=== PATIENT | female | born 1975 | race African-American/Black ===

== ENCOUNTER 2019-05-26 09:40 | Emergency (ER) | payer MEDICARE ==
[~2019-05-26] VITALS: Ht 144.8 cm; Wt 77.3 kg
[~2019-05-26 09:40] MED LIST: AMITRIPTYLIN75 MG OR; COLACE100 MG PO; DEMEROL50 MG OR; DILAUDID4 MG PO; DURAGESIC75 MCG/HR TD; FLEXERIL OR; LIDOCAINE VISC20 ML EX; LYRICA75 MG OR; MACRODANTIN100 MG OR; MIRALAX3350 NF OR; MOTRIN800 MG PO; NAPROSYN500 MG PO; NEURONTIN600 MG OR; NEURONTIN800 MG PO; NYSTATIN100000 M1 PO; PRENATA4 OR; SKELAXIN800 MG OR; SOMA350 MG OR; TOPROL XL25 MG OR; TOPROL XL50 MG OR; TRAMADOL HYDROC50 MG PO; VALIUM5 MG OR; VICODIN OR; XANAX0.5 MG PO; XANAX1 MG OR; ZANTAC25 MG OR
[2019-05-26] MEDS ORDERED: FENTANYL25 MCG/HR TD (09:53)
[2019-05-26] MEDS ORDERED: CARAFATE1 GM PO (09:53)
[2019-05-26] MEDS ORDERED: METHOCARBAMOL500 MG PO (09:55)
[2019-05-26] MEDS ORDERED: AMOX/K CLAV875 M1 PO (10:08)
[2019-05-26 10:15] VITALS: BP 122/74
== END 2019-05-26 10:15 | disposition home or self-care (01) ==
LOC: ED 09:40
DX: J02.9 Acute pharyngitis, unspecified (principal)

== ENCOUNTER 2019-05-27 15:59 | Emergency (ER) | payer MEDICARE ==
[~2019-05-27] VITALS: Ht 144.8 cm; Wt 70.0 kg
[~2019-05-27 15:59] MED LIST changes: +AMOX/K CLAV875 M1 PO; +CARAFATE1 GM PO; +FENTANYL25 MCG/HR TD; +METHOCARBAMOL500 MG PO
[2019-05-27 17:04] LABS: IMMATURE GRANULOCYTES 0.4 % (0.0-5.0); MEAN CORPUSCULAR HGB 22.7 pG CALC (26.0-32.0); MEAN CORPUSCULAR HGB CONC 29.1 g/L CALC (32.0-36.0); NEUT# 3.57 thou/uL (2.00-7.15); RED BLOOD COUNT 4.44 mill/uL (4.20-5.60); RED CELL DISTRI WIDTH 17.5 % (11.5-15.5)
[2019-05-27 17:05] LABS: HEMATOCRIT 34.7 % (37.0-47.0); HEMOGLOBIN 10.1 g/dl (12.0-16.0); MEAN CELL VOLUME 78.2 fL CALC (80.0-100.0)
[2019-05-27 17:20] VITALS: BP 173/89
== END 2019-05-27 17:20 | disposition home or self-care (01) ==
LOC: ED 15:59
DX: Z03.89 Encounter for observation for other suspected diseases and conditions ruled out (principal); F41.9 Anxiety disorder, unspecified

== ENCOUNTER 2020-01-04 | Emergency (ER) | payer MEDICARE ==
[2020-01-04 14:38] LABS: HEMATOCRIT 31.2 % (37.0-47.0); HEMOGLOBIN 8.1 g/dl (12.0-16.0); IMMATURE GRANULOCYTES 0.5 % (0.0-5.0); MEAN CELL VOLUME 65.3 fL CALC (80.0-100.0); MEAN CORPUSCULAR HGB 16.9 pG CALC (26.0-32.0); NEUT# 2.57 thou/uL (2.00-7.15); RED BLOOD COUNT 4.78 mill/uL (4.20-5.60); RED CELL DISTRI WIDTH 19.5 % (11.5-15.5)
[2020-01-04 14:51] LABS: ALBUMIN 4.1 g/dL (3.2-5.0); ALKALINE PHOSPHATASE 85 u/l (38-126); ANION GAP 11 (6-22 (CALC)); BILIRUBIN, TOTAL 0.4 mg/dL (0.0-1.4); BUN 7 mg/dL (7-17); BUN/CREATININE RATIO 12 (12-20 (CALC)); CARBON DIOXIDE 20 mmol/l (22-30); CHLORIDE 110 mmol/l (95-108); CREATININE 0.6 mg/dL (0.5-1.0); GFR > 60 ML/MIN (>=60 (CALC)); GFR FOR AFR.AMER. > 60 ML/MIN (>=60 (CALC)); LIPASE 38 u/l (23-300); SGOT/AST 28 u/l (14-36); SODIUM 138 mmol/l (137-146); TOTAL PROTEIN 7.5 g/dL (6.3-8.2)
[2020-01-04 14:53] LABS: POTASSIUM 3.3 mmol/l (3.5-5.1)
[2020-01-04] MEDS ORDERED: ZOFRAN4 MG/TAB PO (17:12)
[2020-03-20] MEDS ORDERED: FLUOXETINE20 MG PO (07:52)
[2020-03-20] MEDS ORDERED: CIPROFLOXACN500 MG PO (07:52)
[2020-03-20] MEDS ORDERED: BACTRIM DS1 TAB PO (07:52)
[2020-03-20] MEDS ORDERED: AMBIEN5 MG PO (07:52)
[2020-03-20] MEDS ORDERED: MECLIZINE25 MG PO (07:53)
[2020-03-20] MEDS ORDERED: ZOFRAN8 MG PO (07:54)
[2020-03-20] MEDS ORDERED: PROTONIX40 M4 PO (07:54)
[2020-03-20] MEDS ORDERED: REGLAN10 MG PO (07:55)
[2020-03-20] MEDS ORDERED: ROBAXIN-750750 MG PO (07:55)
[2020-04-01] MEDS ORDERED: LEVOTHYROXIN50 MCG PO (11:13)
[2020-04-01] MEDS ORDERED: PERCOCET 5/325M1 TAB PO (11:14)
== END 2020-01-04 17:25 | disposition home or self-care (01) ==
PROVIDERS: Family Medicine
DX: G50.0 Trigeminal neuralgia (principal); R11.2 Nausea with vomiting, unspecified; R19.7 Diarrhea, unspecified; R10.13 Epigastric pain; D64.9 Anemia, unspecified
CPT/HCPCS: Q9967

== ENCOUNTER 2020-04-07 07:43 | Day surgery (SDC) | payer MEDICARE ==
[~2020-04-07 07:43] MED LIST changes: +AMBIEN5 MG PO; +BACTRIM DS1 TAB PO; +CIPROFLOXACN500 MG PO; +FLUOXETINE20 MG PO; +LEVOTHYROXIN50 MCG PO; +MECLIZINE25 MG PO; +PERCOCET 5/325M1 TAB PO; +PROTONIX40 M4 PO; +REGLAN10 MG PO; +ROBAXIN-750750 MG PO; +ZOFRAN4 MG/TAB PO; +ZOFRAN8 MG PO
[2020-04-07] MEDS ORDERED: PERCOCET 5/325M1 TAB PO (10:49)
[2020-04-07 11:13] VITALS: BP 110/56
== END 2020-04-07 11:35 | disposition home or self-care (01) ==
LOC: ORM 07:43
PROVIDERS: ATTEND Surgery
PROC: 0HBU0ZZ Excision of Left Breast, Open Approach (ICD-10-PCS; principal; 2020-04-07)
DX: N61.1 Abscess of the breast and nipple (principal); Z98.84 Bariatric surgery status; Z11.59 Encounter for screening for other viral diseases
CPT/HCPCS: J0131

== ENCOUNTER 2020-05-12 06:52 | Day surgery (SDC) | payer MEDICARE ==
[~2020-05-12] VITALS: Ht 144.8 cm; Wt 73.0 kg
[2020-05-12 09:51] VITALS: BP 119/76
== END 2020-05-12 10:10 | disposition home or self-care (01) ==
LOC: ORM 06:52
PROVIDERS: ATTEND Surgery
PROC: 0HBU0ZZ Excision of Left Breast, Open Approach (ICD-10-PCS; principal; 2020-05-12)
DX: N60.42 Mammary duct ectasia of left breast (principal); N61.0 Mastitis without abscess; E03.9 Hypothyroidism, unspecified; Z11.59 Encounter for screening for other viral diseases
CPT/HCPCS: J0131; J1100

== ENCOUNTER 2020-10-17 12:42 | Observation (INO) | payer MEDICARE ==
[~2020-10-17] VITALS: Ht 144.8 cm; Wt 90.0 kg
--- NOTE | 2020-10-17 12:53 | NUR ---
PATIENT AMBULATED TO ROOM WITH STEADY GAIT AND PHYSICIAN NOTIFIED OF PATIENT STATUS
--- NOTE | 2020-10-17 13:00 | NUR ---
INTRODUCED SELF TO PT REPORTS RIGHT BREAST REDNESS, SWELLING AND OPEN AREA WITH DRAINAGE X 1 WEEK. AREA ACTIVELY DRAINING SEROSANGEOUS FLUID DRIANING. WOUND CULTURE OBTAINED.
[2020-10-17 13:23] LABS: HEMATOCRIT 36.7 % (37.0-47.0); IMMATURE GRANULOCYTES 0.5 % (0.0-5.0); MEAN CORPUSCULAR HGB 26.7 pG CALC (26.0-32.0); MEAN CORPUSCULAR HGB CONC 30.2 g/dL CAL (32.0-36.0); NEUT# 4.13 thou/uL (2.00-7.15); RED BLOOD COUNT 4.16 mill/uL (4.20-5.60); RED CELL DISTRI WIDTH 14.1 % (11.5-15.5)
[2020-10-17 13:26] LABS: HEMOGLOBIN 11.1 g/dl (12.0-16.0); MEAN CELL VOLUME 88.2 fL CALC (80.0-100.0)
[2020-10-17 13:41] LABS: ALBUMIN 3.9 g/dL (3.2-5.0); ALKALINE PHOSPHATASE 95 u/l (38-126); ANION GAP 10 (6-22 (CALC)); BILIRUBIN, TOTAL 0.4 mg/dL (0.0-1.4); BUN 6 mg/dL (7-17); BUN/CREATININE RATIO 10 (12-20 (CALC)); CARBON DIOXIDE 25 mmol/l (22-30); CHLORIDE 108 mmol/l (95-108); CREATININE 0.6 mg/dL (0.5-1.0); GFR > 60 ML/MIN (>=60 (CALC)); GFR FOR AFR.AMER. > 60 ML/MIN (>=60 (CALC)); SGOT/AST 20 u/l (14-36); SODIUM 139 mmol/l (137-146); TOTAL PROTEIN 7.8 g/dL (6.3-8.2)
--- NOTE | 2020-10-17 13:42 | NUR ---
PT MEDIDCATED FOR PAIN AND IV ABX INITIATED PER DR LOUIS ORDER. TOLERATED ADMINISTRATION WELL. ADVISED PT TO CALL NURSE IF NEEDING TO GET OOB. VERBALIZED UNDERSTANDING. ABD PAD CONTINUES TO RIGHT BREAST WITH MINIMAL DRAINAGE. CALL LIGHT GIVEN.
[2020-10-17] MEDS ORDERED: GABAPENTIN600 MG PO (14:15)
[2020-10-17] MEDS ORDERED: ALPRAZOLAM1 MG PO (14:15)
[2020-10-17] MEDS ORDERED: HYDROMORPHONE HC2 MG PO (14:16)
[2020-10-17] MEDS ORDERED: MOTRIN800 MG PO (14:17)
[2020-10-17] MEDS ORDERED: METHOCARBAMOL500 MG PO (14:17)
--- NOTE | 2020-10-17 14:30 | NUR ---
PT RESTING ON STRETCHER, PLAN OF CARE ADVISED ALONG WITH WAIT TIME. PT NOTIFIED OF ANTIBIOTICS AND FLUIDS THAT WILL BE INITIATED SOON
--- NOTE | 2020-10-17 14:40 | NUR ---
PT RESTING ON STRETCHER IN NO APPARENT DISTRESS. RESP EVEN AND UNLABORED. SKIN WARM AND DRY. VEBRALIZES NO NEEDS AT THIS TIME. CALL LIGHT WITHIN REACH.
--- NOTE | 2020-10-17 15:30 | NUR ---
PT RESTING ON STRETCHER WITH EYES OPEN. RESP EVEN AND UNLABORED. PT GUARDING RIGHT BREAST AREA. PAINFUL TO TOUCH. ABD PAD IN PLACE. VERBALIZES NO NEEDS AT THIS TIME. CALL LIGHT WITHIN REACH.
--- NOTE | 2020-10-17 16:14 | NUR ---
REPORT GIVEN TO NAYE BANKS.
--- NOTE | 2020-10-17 16:15 | NUR ---
Admission Note Report Given to: NAYE BANKS. Transported by: X Wheelchair Stretcher Transported with: X Nurse Transporter X Patent IV O2 Print And Pattern Designer Location: ICU X [facility] PT TRANSPORTED TO SD VIA WC TO RM # [id number]
--- NOTE | 2020-10-17 16:23 | NUR ---
PT ARRIVED VIA WC WITH STAFF. TO MS WITH IV SITE IN PLACE.
--- NOTE | 2020-10-17 16:50 | NUR ---
ASSESSMENT IS COMPLETED: PT R BREAST IS VERY RED AND TENDER WITH SOME DRAINAGE NOTED. REPLACED ABD PAD WITH PAPER TAPE TO KEEP IN PLACE. HR IS REG,PULSES ARE STRONG X4, ABD IS SOFT WITH ACTIVE BS. BREATH SOUNDS ARE CLEAR BILATERALLY. PT INQUIRED ABOUT PAIN MEDICATIONS.
--- NOTE | 2020-10-17 18:00 | NUR ---
PER DAVID SCHAEFFER, AFTER GIVING THE DILAUDID PO PT STATED" THIS IS NOT GOING TO WORK". SHE THEN INFORMED DR SALAZAR. ALREADY HAS ORDERED FOR Q 6 HRS PRN
[2020-10-17 20:00] VITALS: BP 129/74
--- NOTE | 2020-10-17 20:00 | NUR ---
PATIENT RESTING IN BED-STATES THAT SHE CONT TO HAVE SEVERE PAIN TO RIGHT BREAST EVEN AFTER BEING MEDICATED WITH DILAUDID. MEDICATED WITH XANAX FOR ANXIETY AT THIS TIME. IVF PATENT ANDINFUSING VIA LEFT HAND SITE AT 125CC/HR. SITE IS HEALTHY. DRESSING TO RIGHT BREAST INTACT. SAFETY PRECAUTIONS REINFORCED. CALL LIGHT IN REACH. WILL CONT TO MONITOR.
--- NOTE | 2020-10-17 22:27 | NUR ---
PATIENT RESTING IN BED-CLEOCIN HUNG ORDERED VIA LEFT HAND IV SITE. PATIENT CONT TO C/O SEVERE PAIN TO RIGHT BREAST-STATES LITTLE RELIEF FROM DILAUDID AND MOTRIN ALREADY GIVEN. PATIENT INSISTS THAT MD BE CALLED TO SEE IF SHE CAN GET IV DILAUDID. DR. SALAZAR CALLED AND NO CHANGES IN ORDERS. PATIENT INFORMED. CALL LIGHT IN REACH. WILL CONT TO MONITOR.
[2020-10-18] VITALS (10 sets, daily range): BP systolic 113–142; BP diastolic 67–78
--- NOTE | 2020-10-18 00:10 | NUR ---
PATIENT RESTING IN BED-MEDICATED FOR RIGHT BREAST PAIN 8/10 ON PAIN SCALE WITH [id number] PO ORDERED. IVF NS PATENT AND INFUSING VIA LEFT HAND SITE AT 125CC/HR. SITE REMAINS HEALTHY. CALL LIGHT IN REACH. WILL CONT TO MONITOR.
--- NOTE | 2020-10-18 04:58 | NUR ---
PATIENT RESTING IN BED AT THIS TIME. IVF NS PATENT AND INFUSING AT 125CC/HR VIA LEFT HAND SITE. CALL LIGHT IN REACH. WILL CONT TO MONITOR.
[2020-10-18 05:26] LABS: HEMOGLOBIN 10.7 g/dl (12.0-16.0); IMMATURE GRANULOCYTES 0.6 % (0.0-5.0); MEAN CELL VOLUME 88.5 fL CALC (80.0-100.0); MEAN CORPUSCULAR HGB 26.3 pG CALC (26.0-32.0); MEAN CORPUSCULAR HGB CONC 29.7 g/dL CAL (32.0-36.0); NEUT# 3.39 thou/uL (2.00-7.15); RED BLOOD COUNT 4.07 mill/uL (4.20-5.60); RED CELL DISTRI WIDTH 14.1 % (11.5-15.5)
[2020-10-18 05:41] LABS: ANION GAP 10 (6-22 (CALC)); BUN 6 mg/dL (7-17); BUN/CREATININE RATIO 11 (12-20 (CALC)); CARBON DIOXIDE 25 mmol/l (22-30); CHLORIDE 110 mmol/l (95-108); CREATININE 0.5 mg/dL (0.5-1.0); GFR > 60 ML/MIN (>=60 (CALC)); GFR FOR AFR.AMER. > 60 ML/MIN (>=60 (CALC)); POTASSIUM 4.4 mmol/l (3.5-5.1); SODIUM 140 mmol/l (137-146)
--- NOTE | 2020-10-18 07:45 | NUR ---
ASSESSMENT IS COMPLTED: IV SITE IS FREE FROM REDNESS OR EDEMA. HR IS REG,PULSES ARE STRONG X4, ABD IS SOFT WITH ACTIVE BS. BREATH SOUNDS ARE CLEAR BILATERALLY,. CONTINUE TO OSBERVE AND MONITOR. DRAINAGE NOTED ON R BREAST DARK BROWN MIXED WITH BLOOD. DRESSING IN PLACE. PT CONTINUES TO HOLD IN PLACE. DUE TO PRESSURE OF WHEN IT IS "ABLE TO FLOP".
--- NOTE | 2020-10-18 09:40 | NUR ---
URINE OBTAINED FOR OR. MOYA FROM ANESTHESIA IN TO SEE PT
[2020-10-18 10:31] LABS: URINE BILIRUBIN - DIPSTICK NEGATIVE (NEGATIVE); URINE BLOOD DIPSTICK NEGATIVE (NEGATIVE); URINE CLARITY CLEAR; URINE COLOR YELLOW; URINE GLUCOSE - DIPSTICK NEGATIVE (NEGATIVE); URINE KETONE 15 mg/dL (NEGATIVE); URINE LEUK ESTERASE NEGATIVE (Negative); URINE NITRITE - DIPSTICK NEGATIVE (Negative); URINE PROTEIN - DIPSTICK NEGATIVE (NEG-TRACE); URINE SPECIFIC GRAVITY 1.025
--- NOTE | 2020-10-18 11:10 | NUR ---
PT TRANSPORTED TO HAVE SURGERY.
--- NOTE | 2020-10-18 14:35 | NUR ---
PT RETURNED FROM OR VIA STRETCHER WITH STAFF. IV SITE IS FREE FROM REDNESS OR EDEMA. DRESSING ON R BREAST IS CDI. RECEIVED PAIN MEDICATION LAST WAS GIVEN AT 1350. EBL -5, TORADOL, TYLENOL, DILAUDID X2. C/O BURNING PAIN. CONTINUE TO OBSERVE AND MONITOR.
--- NOTE | 2020-10-18 16:38 | NUR ---
PT IS RELAXING IN BED WITH NO DISTRESS NOTED. IV SITE IS FREE FROM REDNESS OR EDEMA.
--- NOTE | 2020-10-18 20:02 | NUR ---
PATIENT RESTING IN BED AT THIS TIME WITH HOB ELEVATED. AWAKE ALERT AND ORIENTEDX3. DRESSING TO RIGH TBREAST CDI AT THIS TIME. PATIENT STATES THAT SHE HAS PAIN SCALE OF 6 AT THIS TIME AFTER RECIEVING DILAUDID ON DAYSHIFT. IVF NS PATENT AND INFUSING VIA LEFT HAND SITE AT 125CC/HR. SITE REMAINS HEALTHY AT THIS TIME. CALL LIGHT IN REACH. WILL CONT TO MONITOR.
--- NOTE | 2020-10-18 21:08 | NUR ---
PATIENT RESTING IN BED-HS MEDS GIVEN WITH XANAX 1MG PO FOR ANXIETY, DRESSING TO RIGHT BREAST REMAINS CDI. IVF PATENT AND INFUSING AT 125CC/HR. CALL LIGHT IN REACH. WILL CONT TO MONITOR.
--- NOTE | 2020-10-19 00:04 | NUR ---
PATIENT RESTING IN BED-MEDICATED FOR RIGHT BREAST PAIN 6/10 ON PAIN SCALE WITH DILAUDID 2MG PO. PAIN IS DOWN SOME FROM LAST NIGHT. IVF PATENT AND INFUSING VIA LEFT HAND SITE AT 125CC/HR. SITE REMAINS HEALTHY. CALL LIGHT IN REACH. WILL CONT TO MONITOR.
--- NOTE | 2020-10-19 03:45 | NUR ---
PATIENT RESTING IN BED-PATIENT STATES THAT SHE DID CALL THE ER TO CHECK ON HER BROTHER BECAUSE HE WAS THERE AND SHE WAS CONCERNED THAT HE MAY BE DUNN ACT'ED. PATIENT WAS MEDICATED WITH XANAX 1MG PO FOR INCREASED ANXIETY. IVF PATENT AND INFUSING VIA LEFT HAND SITE AT 125CC/HR. DRESSING TO RIGHT BREAST IS CDI. CALL LIGHT IN REACH. WILL CONT TO MONITOR.
[2020-10-19 04:00] VITALS: BP 118/70; BP 166/91
[2020-10-19 05:18] LABS: HEMATOCRIT 33.2 % (37.0-47.0); HEMOGLOBIN 10.1 g/dl (12.0-16.0); MEAN CELL VOLUME 87.6 fL CALC (80.0-100.0); MEAN CORPUSCULAR HGB 26.6 pG CALC (26.0-32.0); MEAN CORPUSCULAR HGB CONC 30.4 g/dL CAL (32.0-36.0); RED BLOOD COUNT 3.79 mill/uL (4.20-5.60)
[2020-10-19 05:39] LABS: ANION GAP 9 (6-22 (CALC)); BUN 6 mg/dL (7-17); BUN/CREATININE RATIO 12 (12-20 (CALC)); CARBON DIOXIDE 22 mmol/l (22-30); CHLORIDE 110 mmol/l (95-108); CREATININE 0.5 mg/dL (0.5-1.0); GFR > 60 ML/MIN (>=60 (CALC)); GFR FOR AFR.AMER. > 60 ML/MIN (>=60 (CALC)); POTASSIUM 4.1 mmol/l (3.5-5.1); SODIUM 138 mmol/l (137-146)
[2020-10-19 05:43] LABS: MAGNESIUM 1.7 mg/dL (1.6-2.3)
--- NOTE | 2020-10-19 06:16 | NUR ---
PATIENT UP TO THE BR FOR BM AND THEN BACK TO THE BED. PATIENT MEDICATED WITH DILAUDID 2MG PO FOR 7/10 ON PAIN SCALE FOR RIGHT BREAST PAIN. DRESSING TO RIGHT BREAST CDI. IVF PATENT AND INFUSING AT 125/HR VIA LEFT HAND. CLEOCIN HUNG ORDERED. CALL LIGHT IN REACH. WILL CONT TO MONITOR.
[2020-10-19 07:26] VITALS: BP 173/72
--- NOTE | 2020-10-19 07:26 | NUR ---
PT SITTING IN BED. A&O X3. NO DISTRESS NOTED. DRESSING TO RT BREAST IN PLACE WITH SLIGHT SHADOWING PRESENT. PT REPORTS PAIN 8/10. AREA WARM TO TOUCH. PT SLIGHTLY ANXIOUS, VERBAL QUES GIVEN. ASSESSMENT COMPLETED. DISCUSSEED POC. CALL LIGHT WITHIN REACH. CONTINUE TO MONITOR.
--- NOTE | 2020-10-19 08:29 | NUR ---
DR MOODY AND Kahlil REID AT BEDSIDE DISCUSSING POC
--- NOTE | 2020-10-19 09:16 | NUR ---
DR BARRY AT BEDSIDE DISCUSSING POC AND COMPLETING DRESSING CHANGE
--- NOTE | 2020-10-19 11:07 | NUR ---
PT SITTING IN BED. REPORTS PAIN 10/10, X1 DOSE OF LORTAB GIVEN. PT INSTRUCTED TO CALL IF S/S OF ALLERGIC REACTION OCCUR. WILL CONTINUE TO MONITOR CLOSELY. CALL LIGHT IN REACH. CONTINUE TO MONITOR.
--- NOTE | 2020-10-19 11:37 | NUR ---
S: DANIEL NUNEZ is a 45 F who presents with abscess. All medications in patient's chart were reviewed. 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 Start Vancomycin 1250mg IV Q12H. Vancomycin trough is drawn before the 4th dose on 10/20/20. Vancomycin goal trough is between 10-15 mcg/ml. Pharmacy will follow and or advise on antibiotics use as needed.
[2020-10-19 15:00] VITALS: BP 148/82
--- NOTE | 2020-10-19 16:42 | NUR ---
DR WILCOX CONSULT IN PROGRESS
[2020-10-19] MEDS ORDERED: BACTRIM DS1 TAB PO (17:03)
[2020-10-19] MEDS ORDERED: TAM75CAP PO (17:08)
--- NOTE | 2020-10-19 18:00 | NUR ---
D/C INSTRUCTIONS GIVEN TO PT. PT VERBALIZED UNDERSTANDING.
--- NOTE | 2020-10-19 18:27 | NUR ---
Discharge instructions given. Patient verbalizes understanding of same. Discharged in stable condition via Wheelchair to Home with staff. All belongings sent with pt.
== END 2020-10-19 18:25 | disposition home or self-care (01) ==
LOC: ED 12:42 → ED-I 12:58 → ED 12:58 → ED-I 13:45 → ED 14:02 → MS2 14:03
PROVIDERS: Emergency Medicine; Nurse Practitioner; Surgery; ADMIT Internal Medicine; ATTEND Internal Medicine
PROC: 0JB60ZZ Excision of Chest Subcutaneous Tissue and Fascia, Open Approach (ICD-10-PCS; principal; 2020-10-18)
DX: N61.1 Abscess of the breast and nipple (principal); J10.1 Influenza due to other identified influenza virus with other respiratory manifestations; G50.0 Trigeminal neuralgia; F41.9 Anxiety disorder, unspecified; F32.9 Major depressive disorder, single episode, unspecified; B95.7 Other staphylococcus as the cause of diseases classified elsewhere; Z88.1 Allergy status to other antibiotic agents; Z98.84 Bariatric surgery status; Z20.828 Contact with and (suspected) exposure to other viral communicable diseases
CPT/HCPCS: J0131; J1650; J3370; Q3014

== ENCOUNTER 2021-03-13 12:00 | Emergency (ER) | payer MEDICARE ==
[~2021-03-13] VITALS: Ht 144.8 cm; Wt 87.0 kg
[~2021-03-13 12:00] MED LIST changes: +ALPRAZOLAM1 MG PO; +GABAPENTIN600 MG PO; +HYDROMORPHONE HC2 MG PO; +TAM75CAP PO
[2021-03-13 13:01] LABS: HEMATOCRIT 34.6 % (37.0-47.0); HEMOGLOBIN 9.9 g/dl (12.0-16.0); IMMATURE GRANULOCYTES 0.2 % (0.0-5.0); MEAN CORPUSCULAR HGB 22.8 pG CALC (26.0-32.0); MEAN CORPUSCULAR HGB CONC 28.6 g/dL CAL (32.0-36.0); NEUT# 2.91 thou/uL (2.00-7.15); RED BLOOD COUNT 4.34 mill/uL (4.20-5.60); RED CELL DISTRI WIDTH 17.3 % (11.5-15.5)
[2021-03-13 13:17] LABS: MEAN CELL VOLUME 79.7 fL CALC (80.0-100.0)
[2021-03-13 13:21] LABS: ALBUMIN 3.8 g/dL (3.2-5.0); ALKALINE PHOSPHATASE 93 u/l (38-126); ANION GAP 10 (6-22 (CALC)); BUN 7 mg/dL (7-17); BUN/CREATININE RATIO 10 (12-20 (CALC)); CARBON DIOXIDE 22 mmol/l (22-30); CHLORIDE 108 mmol/l (95-108); CREATININE 0.7 mg/dL (0.5-1.0); GFR > 60 ML/MIN (>=60 (CALC)); GFR FOR AFR.AMER. > 60 ML/MIN (>=60 (CALC)); SGOT/AST 25 u/l (14-36); SODIUM 136 mmol/l (137-146); TOTAL PROTEIN 7.8 g/dL (6.3-8.2)
[2021-03-13 13:23] LABS: BILIRUBIN, TOTAL 0.7 mg/dL (0.0-1.4)
[2021-03-13] MEDS ORDERED: LORTAB 1010 MG PO (15:10)
[2021-03-13] MEDS ORDERED: CYCLOBENZAPRINE10 MG PO (15:11)
[2021-03-13 15:30] VITALS: BP 114/62
== END 2021-03-13 15:30 | disposition home or self-care (01) ==
LOC: ED 12:00
PROVIDERS: Emergency Medicine
DX: M47.817 Spondylosis without myelopathy or radiculopathy, lumbosacral region (principal); G50.0 Trigeminal neuralgia; F41.9 Anxiety disorder, unspecified; F32.9 Major depressive disorder, single episode, unspecified; Z98.84 Bariatric surgery status

== ENCOUNTER 2021-08-11 15:25 | Emergency (ER) | payer MEDICARE ==
[~2021-08-11] VITALS: Ht 144.8 cm; Wt 89.0 kg
[~2021-08-11 15:25] MED LIST changes: +CYCLOBENZAPRINE10 MG PO; +LORTAB 1010 MG PO
[2021-08-11 15:44] VITALS: BP 110/76
[2021-08-11] MEDS ORDERED: DRIZALMA SPRINK60 MG PO (16:01)
[2021-08-11] MEDS ORDERED: METHADONE5 M1 PO (16:03)
[2021-08-12] MEDS ORDERED: BACTRIM DS1 TAB PO (15:17)
== END 2021-08-11 18:30 | disposition home or self-care (01) ==
LOC: ED 15:25
DX: M25.571 Pain in right ankle and joints of right foot (principal); N61.1 Abscess of the breast and nipple; E66.9 Obesity, unspecified; F41.9 Anxiety disorder, unspecified; F32.A Depression, unspecified; Z98.84 Bariatric surgery status; M79.661 Pain in right lower leg

== ENCOUNTER 2022-03-09 20:50 | Emergency (ER) | payer MEDICARE ==
[2022-03-09] VITALS (8 sets, daily range): BP systolic 114–147; BP diastolic 74–87
[~2022-03-09] VITALS: Ht 144.8 cm; Wt 85.0 kg
[~2022-03-09 20:50] MED LIST changes: +DRIZALMA SPRINK60 MG PO; +METHADONE5 M1 PO
[2022-03-09 21:14] LABS: HEMATOCRIT 32.7 % (37.0-47.0); HEMOGLOBIN 8.7 g/dl (12.0-16.0); IMMATURE GRANULOCYTES 0.1 % (0.0-5.0); MEAN CORPUSCULAR HGB 19.6 pG CALC (26.0-32.0); MEAN CORPUSCULAR HGB CONC 26.6 g/dL CAL (32.0-36.0); NEUT# 3.83 thou/uL (2.00-7.15); RED BLOOD COUNT 4.44 mill/uL (4.20-5.60); RED CELL DISTRI WIDTH 19.5 % (11.5-15.5)
[2022-03-09 21:15] LABS: MEAN CELL VOLUME 73.6 fL CALC (80.0-100.0)
[2022-03-09 21:26] LABS: ALBUMIN 4.5 g/dL (3.2-5.0); ALKALINE PHOSPHATASE 110 u/l (38-126); AMYLASE 49 u/l (30-110); ANION GAP 15 (6-22 (CALC)); BILIRUBIN, TOTAL 0.5 mg/dL (0.0-1.4); BUN 8 mg/dL (7-17); BUN/CREATININE RATIO 11 (12-20 (CALC)); CARBON DIOXIDE 21 mmol/l (22-30); CHLORIDE 104 mmol/l (95-108); CREATININE 0.7 mg/dL (0.5-1.0); ETHYL ALCOHOL 0 mg/dl (0-30); GFR > 60 ML/MIN (>=60 (CALC)); GFR FOR AFR.AMER. > 60 ML/MIN (>=60 (CALC)); LIPASE 40 u/l (23-300); POTASSIUM 3.9 mmol/l (3.5-5.1); SGOT/AST 35 u/l (14-36); SODIUM 136 mmol/l (137-146); TOTAL PROTEIN 8.4 g/dL (6.3-8.2)
[2022-03-09 21:27] LABS: HCG SERUM/URINE (NEG/POS) NEGATIVE (NEGATIVE)
== END 2022-03-09 23:01 | disposition left against medical advice (07) ==
LOC: ED 20:50
DX: R07.9 Chest pain, unspecified (principal); R00.0 Tachycardia, unspecified; F41.9 Anxiety disorder, unspecified; F32.A Depression, unspecified; G50.0 Trigeminal neuralgia; Z98.84 Bariatric surgery status; Z91.19 Patient's noncompliance with other medical treatment and regimen; Z20.822 Contact with and (suspected) exposure to COVID-19

== ENCOUNTER 2022-05-28 08:39 | Emergency (ER) | payer MEDICARE ==
[2022-05-28] VITALS (9 sets, daily range): BP systolic 106–266; BP diastolic 69–240
[~2022-05-28] VITALS: Ht 144.8 cm; Wt 80.9 kg
[2022-05-28 09:12] LABS: HEMATOCRIT 37.3 % (37.0-47.0); HEMOGLOBIN 10.2 g/dl (12.0-16.0); MEAN CELL VOLUME 76.4 fL CALC (80.0-100.0); MEAN CORPUSCULAR HGB 20.9 pG CALC (26.0-32.0); MEAN CORPUSCULAR HGB CONC 27.3 g/dL CAL (32.0-36.0); NEUT# 2.51 thou/uL (2.00-7.15); RED BLOOD COUNT 4.88 mill/uL (4.20-5.60); RED CELL DISTRI WIDTH 22.1 % (11.5-15.5)
[2022-05-28 09:50] LABS: ALBUMIN 4.1 g/dL (3.2-5.0); ALKALINE PHOSPHATASE 102 u/l (38-126); ANION GAP 11 (6-22 (CALC)); BILIRUBIN, TOTAL 0.6 mg/dL (0.0-1.4); BUN 7 mg/dL (7-17); BUN/CREATININE RATIO 10 (12-20 (CALC)); CARBON DIOXIDE 21 mmol/l (22-30); CHLORIDE 111 mmol/l (95-108); CREATININE 0.7 mg/dL (0.5-1.0); GFR FOR AFR.AMER. > 60 ML/MIN (>=60 (CALC)); GFR OTHER RACES > 60 ML/MIN (>=60 (CALC)); POTASSIUM 3.6 mmol/l (3.5-5.1); SGOT/AST 32 u/l (14-36); SODIUM 139 mmol/l (137-146); TOTAL PROTEIN 7.6 g/dL (6.3-8.2)
[2022-05-28] MEDS ORDERED: PERCOCET 10/31 COMBO PO (10:28)
[2022-05-28] MEDS ORDERED: HYDROCO/APAP1 T10 PO (11:51)
== END 2022-05-28 12:27 | disposition home or self-care (01) ==
LOC: ED 08:39
PROVIDERS: Family Medicine
DX: M25.571 Pain in right ankle and joints of right foot (principal); F41.9 Anxiety disorder, unspecified; F32.A Depression, unspecified; G50.0 Trigeminal neuralgia; Z98.84 Bariatric surgery status; Z98.890 Other specified postprocedural states

== ENCOUNTER 2024-05-05 00:06 | Emergency (ER) | payer MEDICARE ==
[~2024-05-05] VITALS: Ht 144.8 cm; Wt 82.0 kg
[~2024-05-05 00:06] MED LIST changes: +HYDROCO/APAP1 T10 PO; +PERCOCET 10/31 COMBO PO
[2024-05-05 00:34] VITALS: BP 103/67
[2024-05-05] MEDS ORDERED: SODIUM CHLORIDE 0.9% 1,000 ML IV STA (00:36)
[2024-05-05] MEDS ORDERED: DiphenhydrAMINE HCL 50 MG/ML SDV IV ONE (00:40)
[2024-05-05] MEDS ORDERED: PROMETHAZINE HCL 25 MG/ML AMP IV ONE (00:40)
[2024-05-05 00:46] VITALS: BP 124/75
[2024-05-05 00:57] LABS: BASO% 0.7 % (0-3); EOS% 3.1 % (0-8); HEMATOCRIT 33.4 % (37.0-47.0); HEMOGLOBIN 9.1 g/dl (12.0-16.0); IMMATURE GRANULOCYTES 0.4 % (0.0-5.0); LYMPH% 46.1 % (15-41); MEAN CELL VOLUME 74.1 fL CALC (80.0-100.0); MEAN CORPUSCULAR HGB 20.2 pG CALC (26.0-32.0); MEAN CORPUSCULAR HGB CONC 27.2 g/dL CAL (32.0-36.0); MONO% 8.9 % (2-13); NEUT# 1.83 thou/uL (2.00-7.15); NEUT% 40.8 % (42-76); RED BLOOD COUNT 4.51 mill/uL (4.20-5.60); RED CELL DISTRI WIDTH 20.9 % (11.5-15.5)
[2024-05-05 01:01] VITALS: BP 112/62
[2024-05-05 01:10] LABS: HCG SERUM/URINE (NEG/POS) NEGATIVE (NEGATIVE)
[2024-05-05 01:11] LABS: ALBUMIN 4.3 g/dL (3.2-5.0); BILIRUBIN, TOTAL 0.5 mg/dL (0.02-1.3); CREATININE 0.7 mg/dL (0.5-1.0); POTASSIUM 4.2 mmol/l (3.5-5.1); TOTAL PROTEIN 7.9 g/dL (6.3-8.2)
[2024-05-05 03:04] LABS: URINE BILIRUBIN - DIPSTICK Negative (NEGATIVE); URINE COLOR Yellow; URINE GLUCOSE - DIPSTICK Negative (NEGATIVE); URINE KETONE Negative (NEGATIVE); URINE LEUK ESTERASE Small (NEGATIVE); URINE NITRITE - DIPSTICK Negative (Negative); URINE PROTEIN - DIPSTICK Negative (NEG-TRACE); URINE UROBILINOGEN - DIPSTICK 0.2 E.U./dL (0.2)
[2024-05-05 03:06] LABS: URINE BLOOD DIPSTICK Negative (NEGATIVE)
[2024-05-05 03:09] LABS: URINE BACTERIA MODERATE hpf; URINE EPITHELIAL CELLS FEW EPI/hpf (0-FEW)
[2024-05-05] MEDS ORDERED: PROCHLORPER25 MG RE (03:43)
[2024-05-05] MEDS ORDERED: PROCHLORPERAZINE EDISYLATE 10 MG/2 ML SDV IV ONE (03:45)
[2024-05-05 04:00] VITALS: BP 108/78
== END 2024-05-05 04:10 | disposition home or self-care (01) ==
LOC: ED 00:06
PROVIDERS: Family Medicine
DX: K52.9 Noninfective gastroenteritis and colitis, unspecified (principal); F41.9 Anxiety disorder, unspecified; F32.A Depression, unspecified; G50.0 Trigeminal neuralgia; Z98.84 Bariatric surgery status; Z20.822 Contact with and (suspected) exposure to COVID-19

== ENCOUNTER 2024-07-30 11:47 | Inpatient (IN) | payer MEDICARE ==
[~2024-07-30] VITALS: Ht 144.8 cm; Wt 83.0 kg
[2024-07-30] VITALS (12 sets, daily range): BP systolic 115–135; BP diastolic 70–90
[~2024-07-30 11:47] MED LIST changes: +PROCHLORPER25 MG RE
[2024-07-30 12:38] LABS: BASO% 0.9 % (0-3); EOS% 4.2 % (0-8); HEMATOCRIT 32.4 % (37.0-47.0); HEMOGLOBIN 9.1 g/dl (12.0-16.0); IMMATURE GRANULOCYTES 0.2 % (0.0-5.0); LYMPH% 29.4 % (15-41); MEAN CELL VOLUME 76.6 fL CALC (80.0-100.0); MEAN CORPUSCULAR HGB 21.5 pG CALC (26.0-32.0); MEAN CORPUSCULAR HGB CONC 28.1 g/dL CAL (32.0-36.0); MONO% 10.7 % (2-13); NEUT# 2.34 thou/uL (2.00-7.15); NEUT% 54.6 % (42-76); RED BLOOD COUNT 4.23 mill/uL (4.20-5.60); RED CELL DISTRI WIDTH 19.1 % (11.5-15.5)
[2024-07-30 12:54] LABS: ALBUMIN 4.2 g/dL (3.2-5.0); BILIRUBIN, TOTAL 0.3 mg/dL (0.02-1.3); CREATININE 0.7 mg/dL (0.5-1.0); POTASSIUM 3.8 mmol/l (3.5-5.1); TOTAL PROTEIN 7.5 g/dL (6.3-8.2)
[2024-07-30] MEDS ORDERED: ONDANSETRON HCl 4 MG/2 ML SDV IV ONE (13:50)
[2024-07-30] MEDS ORDERED: MECLIZINE HCL 25 MG/TAB PO ONE (14:35)
[2024-07-30] MEDS ORDERED: LORazepam 2 MG/ML IV PRN (14:40)
[2024-07-30] MEDS ORDERED: MECLIZINE HCL 25 MG/TAB PO PRN (14:45)
[2024-07-30] MEDS ORDERED: ALPRAZolam 0.5 MG/TAB PO PRN (14:45)
[2024-07-30] MEDS ORDERED: MAGNESIUM HYDROXIDE 30 ML UDC PO PRN (14:45)
[2024-07-30] MEDS ORDERED: SODIUM CHLORIDE 0.9% 1,000 ML IV PRN (14:45)
[2024-07-30] MEDS ORDERED: IBUPROFEN 600 MG/TAB PO PRN (14:50)
[2024-07-30] MEDS ORDERED: GABAPENTIN 300 MG/CAP PO SCH ×2 (15:00→16:00)
[2024-07-30] MEDS ORDERED: PROTONIX40 M2 PO (15:00)
[2024-07-30] MEDS ORDERED: oxyCODONE HCL 5 MG/TAB PO PRN (15:10)
[2024-07-30] MEDS ORDERED: ONDANSETRON HCl 4 MG/2 ML SDV IV PRN (16:55)
[2024-07-30] MEDS ORDERED: IRON SUCROSE COMPLEX 200 MG in SODIUM CHLORIDE 0.9% 100 ML IV SCH (17:00)
[2024-07-30] MEDS ORDERED: ENOXAPARIN SODIUM 40 MG/0.4 ML SYR SC SCH (21:00)
[2024-07-31] VITALS (7 sets, daily range): BP systolic 110–151; BP diastolic 63–86
[2024-07-31 05:44] LABS: ALBUMIN 3.8 g/dL (3.2-5.0); CHOLESTEROL HDL RATIO 2.5 (<4.4 (CALC)); CREATININE 0.7 mg/dL (0.5-1.0); POTASSIUM 3.8 mmol/l (3.5-5.1); TOTAL PROTEIN 6.8 g/dL (6.3-8.2)
[2024-07-31 05:55] LABS: BASO% 1.1 % (0-3); BILIRUBIN, TOTAL 0.5 mg/dL (0.02-1.3); EOS% 2.8 % (0-8); HEMATOCRIT 32.4 % (37.0-47.0); HEMOGLOBIN 9.3 g/dl (12.0-16.0); IMMATURE GRANULOCYTES 0.5 % (0.0-5.0); LYMPH% 25.3 % (15-41); MAGNESIUM 2.3 mg/dL (1.6-2.3); MEAN CELL VOLUME 77.9 fL CALC (80.0-100.0); MEAN CORPUSCULAR HGB 22.4 pG CALC (26.0-32.0); MEAN CORPUSCULAR HGB CONC 28.7 g/dL CAL (32.0-36.0); MONO% 9.9 % (2-13); NEUT# 2.63 thou/uL (2.00-7.15); NEUT% 60.4 % (42-76); RED BLOOD COUNT 4.16 mill/uL (4.20-5.60); RED CELL DISTRI WIDTH 19.3 % (11.5-15.5)
[2024-07-31] MEDS ORDERED: FLUoxetine HCL 10 MG/CAP PO SCH (09:00)
[2024-07-31] MEDS ORDERED: PANTOPRAZOLE SODIUM Sesquihydr 40 MG/TAB PO SCH (09:00)
[2024-07-31] MEDS ORDERED: METHOCARBAMOL 500 MG/TAB PO SCH (13:30)
[2024-07-31] MEDS ORDERED: LIDOCAINE HCL MT SCH (15:00)
[2024-07-31 17:07] LABS: URINE BILIRUBIN - DIPSTICK Negative (NEGATIVE); URINE BLOOD DIPSTICK Negative (NEGATIVE); URINE COLOR Yellow; URINE GLUCOSE - DIPSTICK Negative (NEGATIVE); URINE KETONE Negative (NEGATIVE); URINE LEUK ESTERASE Trace (NEGATIVE); URINE NITRITE - DIPSTICK Negative (Negative); URINE PROTEIN - DIPSTICK Negative (NEG-TRACE); URINE UROBILINOGEN - DIPSTICK 0.2 E.U./dL (0.2)
[2024-08-01] VITALS (7 sets, daily range): BP systolic 103–137; BP diastolic 55–78
[2024-08-01 05:47] LABS: BASO% 1.2 % (0-3); EOS% 2.9 % (0-8); HEMATOCRIT 30.4 % (37.0-47.0); HEMOGLOBIN 8.5 g/dl (12.0-16.0); IMMATURE GRANULOCYTES 1.2 % (0.0-5.0); LYMPH% 33.4 % (15-41); MEAN CELL VOLUME 78.4 fL CALC (80.0-100.0); MEAN CORPUSCULAR HGB 21.9 pG CALC (26.0-32.0); NEUT# 2.16 thou/uL (2.00-7.15); NEUT% 52.3 % (42-76); RED BLOOD COUNT 3.88 mill/uL (4.20-5.60); RED CELL DISTRI WIDTH 19.4 % (11.5-15.5)
[2024-08-01 06:08] LABS: ALBUMIN 3.2 g/dL (3.2-5.0); BILIRUBIN, TOTAL 0.3 mg/dL (0.02-1.3); CREATININE 0.7 mg/dL (0.5-1.0); MAGNESIUM 2.3 mg/dL (1.6-2.3); POTASSIUM 3.9 mmol/l (3.5-5.1)
[2024-08-01] MEDS ORDERED: HYDROmorphone HCL 2 MG/AMP IV PRN (10:50)
[2024-08-01] MEDS ORDERED: LIDOCAINE HCL MT PRN (10:50)
[2024-08-01] MEDS ORDERED: ALPRAZolam 0.5 MG/TAB PO PRN (13:35)
[2024-08-01] MEDS ORDERED: oxyCODONE HCL 5 MG/TAB PO SCH (14:00)
[2024-08-01] MEDS ORDERED: oxyCODONE HCL 5 MG/TAB PO PRN (20:00)
[2024-08-02 03:44] VITALS: BP 138/78
[2024-08-02 05:46] LABS: BASO% 0.8 % (0-3); EOS% 3.4 % (0-8); HEMATOCRIT 31.6 % (37.0-47.0); HEMOGLOBIN 8.8 g/dl (12.0-16.0); IMMATURE GRANULOCYTES 0.4 % (0.0-5.0); LYMPH% 27.3 % (15-41); MEAN CORPUSCULAR HGB CONC 27.8 g/dL CAL (32.0-36.0); MONO% 5.9 % (2-13); NEUT# 3.14 thou/uL (2.00-7.15); NEUT% 62.2 % (42-76)
[2024-08-02 05:51] LABS: ALBUMIN 3.5 g/dL (3.2-5.0); BILIRUBIN, TOTAL 0.4 mg/dL (0.02-1.3); C-REACTIVE PROTEIN 0.8 mg/dL (0-0.9); CREATININE 0.6 mg/dL (0.5-1.0); MAGNESIUM 2.2 mg/dL (1.6-2.3); POTASSIUM 3.7 mmol/l (3.5-5.1); TOTAL PROTEIN 6.5 g/dL (6.3-8.2)
[2024-08-02] MEDS ORDERED: TOPIRAMATE 25 MG TAB PO SCH (09:00)
[2024-08-02 11:52] VITALS: BP 139/77
[2024-08-02] MEDS ORDERED: LIDOCAINE HCL MT PRN (12:50)
[2024-08-02 16:00] VITALS: BP 120/93
[2024-08-02 18:13] VITALS: BP 126/69
[2024-08-02 18:24] VITALS: BP 126/69
[2024-08-03 00:17] VITALS: BP 109/65
[2024-08-03 04:05] VITALS: BP 116/73
[2024-08-03 04:34] VITALS: BP 116/73
[2024-08-03 05:35] LABS: BASO% 0.6 % (0-3); EOS% 3.7 % (0-8); HEMATOCRIT 32.3 % (37.0-47.0); HEMOGLOBIN 8.9 g/dl (12.0-16.0); IMMATURE GRANULOCYTES 0.6 % (0.0-5.0); LYMPH% 20.7 % (15-41); MEAN CELL VOLUME 80.1 fL CALC (80.0-100.0); MEAN CORPUSCULAR HGB 22.1 pG CALC (26.0-32.0); MEAN CORPUSCULAR HGB CONC 27.6 g/dL CAL (32.0-36.0); MONO% 5.5 % (2-13); NEUT# 3.39 thou/uL (2.00-7.15); NEUT% 68.9 % (42-76); RED BLOOD COUNT 4.03 mill/uL (4.20-5.60); RED CELL DISTRI WIDTH 20.1 % (11.5-15.5)
[2024-08-03 05:54] LABS: ALBUMIN 3.6 g/dL (3.2-5.0); BILIRUBIN, TOTAL 0.5 mg/dL (0.02-1.3); CREATININE 0.6 mg/dL (0.5-1.0); MAGNESIUM 2.2 mg/dL (1.6-2.3); POTASSIUM 3.9 mmol/l (3.5-5.1); TOTAL PROTEIN 6.5 g/dL (6.3-8.2)
[2024-08-03 06:13] VITALS: BP 118/62
[2024-08-03] MEDS ORDERED: MECLIZINE25 MG PO (06:16)
[2024-08-03] MEDS ORDERED: [UNRECOGNIZED DRUG - OTHER] PO (06:18)
[2024-08-03] MEDS ORDERED: VERAPAMIL PO (06:18)
[2024-08-03 06:47] VITALS: BP 118/62
[2024-08-03 10:35] VITALS: BP 116/77
[2024-08-03] MEDS ORDERED: OXYCODONE5 M1 PO (12:19)
[2024-08-03] MEDS ORDERED: HURRICAINE EX (12:44)
[2024-08-03] MEDS ORDERED: ALPRAZolam 0.25 MG PO SCH (13:30)
== END 2024-08-03 13:54 | disposition home or self-care (01) | DRG 149 ==
LOC: ED 11:47 → ED-I 13:40 → ED 13:57 → MS2 13:58
PROVIDERS: Family Medicine; ADMIT Student in an Organized Health Care Education/Training Program; ATTEND Student in an Organized Health Care Education/Training Program
DX: H81.12 Benign paroxysmal vertigo, left ear (principal); G90.50 Complex regional pain syndrome I, unspecified; D50.8 Other iron deficiency anemias; G44.009 Cluster headache syndrome, unspecified, not intractable; K12.0 Recurrent oral aphthae; M47.816 Spondylosis without myelopathy or radiculopathy, lumbar region; F41.9 Anxiety disorder, unspecified; F32.A Depression, unspecified; G50.0 Trigeminal neuralgia; T45.4X6A Underdosing of iron and its compounds, initial encounter; Z91.128 Patient's intentional underdosing of medication regimen for other reason; E66.9 Obesity, unspecified; Z68.39 Body mass index [BMI] 39.0-39.9, adult; Z98.84 Bariatric surgery status; Z90.49 Acquired absence of other specified parts of digestive tract; Z88.8 Allergy status to other drugs, medicaments and biological substances
CPT/HCPCS: G0378; J1650; J1756

== ENCOUNTER 2024-10-08 05:20 | Observation (INO) | payer MEDICARE ==
[~2024-10-08] VITALS: Ht 144.8 cm; Wt 89.0 kg
[2024-10-08] VITALS (19 sets, daily range): BP systolic 117–151; BP diastolic 70–99
[~2024-10-08 05:20] MED LIST changes: +HURRICAINE EX; +OXYCODONE5 M1 PO; +PROTONIX40 M2 PO; +VERAPAMIL PO; +[UNRECOGNIZED DRUG - OTHER] PO
--- NOTE | 2024-10-08 05:20 | NUR ---
PT TO RM 6 VIA EMS
[2024-10-08] MEDS ORDERED: LORazepam 2 MG/ML IV ONE (05:50)
[2024-10-08 06:05] LABS: BASO% 0.6 % (0-3); EOS% 5.9 % (0-8); IMMATURE GRANULOCYTES 0.2 % (0.0-5.0); LYMPH% 41.5 % (15-41); MEAN CORPUSCULAR HGB CONC 30.9 g/dL CAL (32.0-36.0); MONO% 6.1 % (2-13); NEUT# 2.15 thou/uL (2.00-7.15); NEUT% 45.7 % (42-76); RED BLOOD COUNT 4.44 mill/uL (4.20-5.60); RED CELL DISTRI WIDTH 20.8 % (11.5-15.5)
[2024-10-08] MEDS ORDERED: ONDANSETRON HCl 4 MG/2 ML SDV IV ONE ×2 (06:05→09:05)
[2024-10-08 06:06] LABS: HEMATOCRIT 38.8 % (37.0-47.0); MEAN CELL VOLUME 87.4 fL CALC (80.0-100.0)
[2024-10-08 06:09] LABS: ALBUMIN 4.3 g/dL (3.2-5.0); ALKALINE PHOSPHATASE 78 u/l (38-126); ANION GAP 14 (6-22 (CALC)); BILIRUBIN, TOTAL 0.4 mg/dL (0.02-1.3); BUN 9 mg/dL (7-17); BUN/CREATININE RATIO 13 (12-20 (CALC)); CARBON DIOXIDE 25 mmol/l (22-30); CHLORIDE 105 mmol/l (95-108); CREATININE 0.7 mg/dL (0.5-1.0); ESTIMATED GFR 105 ML/MIN (>=90 (CALC)); LIPASE 48 u/l (23-300); POTASSIUM 4.3 mmol/l (3.5-5.1); SGOT/AST 35 u/l (14-36); SODIUM 140 mmol/l (137-146); TOTAL PROTEIN 7.4 g/dL (6.3-8.2)
[2024-10-08 06:23] LABS: ACT PARTIAL THROMBO TIME 24.8 SECONDS (20.0-32.5)
[2024-10-08 06:25] LABS: PROTHROMBIN TIME 10.4 SECONDS (9.0-12.5)
[2024-10-08 06:31] LABS: D-DIMER 0.2 mg/L (0.19-0.60)
[2024-10-08] MEDS ORDERED: oxyCODONE 10MG/APAP 325 MG 1 COMBO TAB PO ONE (06:55)
--- NOTE | 2024-10-08 06:55 | NUR ---
RC'D REPORT FROM MARGE BANKS. PT UP TO R/R. BEDSIDE EVALUATION COMPLETE, PT C/O BACK, CHEST AND ABD PAIN. PLACED ON MONITOR REPOSITIONED FOR COMFORT.
[2024-10-08 06:58] LABS: URINE BILIRUBIN - DIPSTICK Negative (NEGATIVE); URINE BLOOD DIPSTICK Negative (NEGATIVE); URINE GLUCOSE - DIPSTICK Negative (NEGATIVE); URINE KETONE Negative (NEGATIVE); URINE LEUK ESTERASE Trace (NEGATIVE); URINE NITRITE - DIPSTICK Negative (Negative); URINE PROTEIN - DIPSTICK Negative (NEG-TRACE); URINE SPECIFIC GRAVITY 1.015; URINE UROBILINOGEN - DIPSTICK 0.2 E.U./dL (0.2)
[2024-10-08 06:59] LABS: URINE COLOR Yellow
--- NOTE | 2024-10-08 07:10 | NUR ---
MD AT BEDSIDE FOR EXAM, PLAN OF CARE DISCUSSED WITH PT, DENIES ANY QUESTIONS UPON COMPLETION.
[2024-10-08] MEDS ORDERED: Iopamidol 370 (Isovue) 76% 100 ML SDV IV ONE ×2 (07:35)
--- NOTE | 2024-10-08 07:48 | NUR ---
PT REASSESSMENT COMPLETE. PT PROVIDED WARM BLANKET. DENIES ANY NEEDS AT THIS TIME.
--- NOTE | 2024-10-08 08:20 | NUR ---
Pt up to restroom with slow steady gait accompanied by DISTANCE LEARNING TECHNICIAN.
--- NOTE | 2024-10-08 08:30 | NUR ---
PT TO C/T W/OUT INCIDENT
--- NOTE | 2024-10-08 09:10 | NUR ---
PT RESTING, C/O H/A. CALL LIGHT WITHIN REACH. MONITOR IN PLACE.
--- NOTE | 2024-10-08 09:35 | NUR ---
PT REASSESSMENT COMPLETE, PT RESTING C/O H/A AND NAUSEA. PT REMAINS ON MONITOR. MEDICATED PER MD ORDER.
--- NOTE | 2024-10-08 10:00 | NUR ---
PT REMAINS STABLE, DENIES ANY CHANGE IN STATUS, NAUSEADECREASED, RESTING WITH ROOM DARK AND EYES CLOSED
[2024-10-08] MEDS ORDERED: OXYCODONE HCL10 MG PO (10:25)
[2024-10-08] MEDS ORDERED: MECLIZINE HYDRO25 M1 (10:27)
[2024-10-08] MEDS ORDERED: ALPRAZOLAM0.5 M2 PO (10:28)
--- NOTE | 2024-10-08 10:56 | NUR ---
NEEDS ASSESSMENT COMPLETE, PT REMAINS STABLE.
[2024-10-08] MEDS ORDERED: MAGNESIUM HYDROXIDE 30 ML UDC PO PRN (11:00)
[2024-10-08] MEDS ORDERED: ACETAMINOPHEN 325 MG/TAB PO PRN (11:00)
--- NOTE | 2024-10-08 11:25 | NUR ---
REPORT TO KURT, DENIES QUESTION UPON COMPLETION.
[2024-10-08] MEDS ORDERED: HYDROmorphone HCL 2 MG/AMP IV ONE (11:45)
--- NOTE | 2024-10-08 12:30 | NUR ---
PT ARRIVED TO THE UNIT VIA STRETCHER, PT AMBULATED FROM THE STRETCHER TO THE BEDSIDE SCALE AND TO THE BED WITH A STEADY GAIT, PT IS A&O X3, PUPILS PERRL, SKIN CD&I, NORMAL S1 S2 HEART SOUNDS, TELE MONITOR IN PLACE, RESP. EVEN AND UNLABORED, CLEAR LUNG SOUNDS, ABD SOFT AND DISTENDED WITH ACTIVE BOWEL SOUNDS, STRONG RADIAL AND PEDAL PULSES, 20G LFA IV SL, 22G RAC IV SL, PT ORIENTED TO THE ROOM AND CALL LOPEZ SYSTEM, SAFETY MEASURES REINFORCED, CALL LOPEZ WITHIN REACH
--- NOTE | 2024-10-08 12:39 | NUR ---
PT TRANSFERED TO MED SURG W/OUT INCIDENT. NURSING STAFF AT BEDSIDE UPON COMPLETION, ALL BELONGINGS SENT WITH PT.
[2024-10-08] MEDS ORDERED: METHOCARBAMOL 500 MG/TAB PO PRN (13:30)
[2024-10-08] MEDS ORDERED: oxyCODONE HCL 5 MG/TAB PO PRN (13:30)
[2024-10-08] MEDS ORDERED: MECLIZINE HCL 25 MG/TAB PO PRN (13:30)
[2024-10-08] MEDS ORDERED: ALPRAZolam 0.25 MG PO PRN (13:35)
[2024-10-08] MEDS ORDERED: FLUoxetine HCL 10 MG/CAP PO SCH (14:00)
[2024-10-08] MEDS ORDERED: ONDANSETRON HCl 4 MG/2 ML SDV IV PRN (15:15)
--- NOTE | 2024-10-08 16:00 | NUR ---
PT SITTING ON THE SIDE OF THE BED, PT COMPLAINING OF NAUSEA, PT MEDICATED, PT DENIES ANY OTHER NEEDS AT THIS TIME, CALL LOPEZ WITHIN REACH
[2024-10-08] MEDS ORDERED: SUCRALFATE 1 GM/TAB PO SCH (17:00)
[2024-10-08] MEDS ORDERED: GABAPENTIN 300 MG/CAP PO SCH (17:00)
[2024-10-08] MEDS ORDERED: PANTOPRAZOLE SODIUM Sesquihydr 40 MG/TAB PO SCH (21:00)
[2024-10-08] MEDS ORDERED: ENOXAPARIN SODIUM 40 MG/0.4 ML SYR SC SCH (21:00)
--- NOTE | 2024-10-08 21:39 | NUR ---
PT REQUESTED TYLENOL FOR HEADACHE- MEDICATED WITH TYLENOL 650 MG PO FOR HEACACHE AND SOFRAM FOR NAUSEA 4 MG VIA IV AT THIS TIME. CALL LIGHT IN REACH AND SAFETY PRECAUTIONS ON PLACE.
--- NOTE | 2024-10-08 21:46 | NUR ---
PT SITTING ON THE BED WATCHING TV AT THIS TIME. ALERT AND ORIENTED X3. DENIES ANY CHEST PAIN. RESPS ARE EVEN AND UNLABORED. NO SIGNS OF DISTRESS NOTED. TELE MONITOR #[address] ORDERED SHOWING SR-68 AT THIS TIME. 2 IV G NOTED- 20 G LEFT FOREARM AND 22 G ON HER RIGHT FOREARM FLUSHED EACH ONE WITH 5CC. PEDAL PULSES PALAPABLEs +2. CALL LIGHT IN REACH AND SAFETY PRECAUTIONS ON PLACE
[2024-10-09 00:10] VITALS: BP 116/68
[2024-10-09 00:31] VITALS: BP 116/68
--- NOTE | 2024-10-09 00:48 | NUR ---
PT RESTING ON BED. BREATHING IS EVEN AND UNLABORED. TELE ON PLACE SHOWING SR-73 AT THIS TIME. CALL LIGHT IN REACH AND SAFETY PRECAUTIONS ON PLACE
--- NOTE | 2024-10-09 01:49 | NUR ---
PT PROVIDED WITH A HEAT BAG FOR LOWER BACK PAIN.
[2024-10-09 03:55] VITALS: BP 122/70
[2024-10-09 04:00] VITALS: BP 122/70
--- NOTE | 2024-10-09 04:04 | NUR ---
PATIENT RESTING ON BED. BREATHING IS EVEN AND UNLABORED. NO SIGNS OF DISTRESS NOTED. TELE MONITOR ON PLACE SHOWING SR-66 AT THIS TTME. CALL LIGHT IN REACH AND SAFETY PRECAUTIONS ON PLACE
[2024-10-09 05:30] LABS: BASO% 0.6 % (0-3); HEMOGLOBIN 11.8 g/dl (12.0-16.0); IMMATURE GRANULOCYTES 0.2 % (0.0-5.0); LYMPH% 32.6 % (15-41); MEAN CELL VOLUME 89.7 fL CALC (80.0-100.0); MEAN CORPUSCULAR HGB 27.1 pG CALC (26.0-32.0); MEAN CORPUSCULAR HGB CONC 30.3 g/dL CAL (32.0-36.0); MONO% 6.4 % (2-13); NEUT# 2.67 thou/uL (2.00-7.15); NEUT% 55.2 % (42-76); RED BLOOD COUNT 4.35 mill/uL (4.20-5.60); RED CELL DISTRI WIDTH 20.6 % (11.5-15.5)
[2024-10-09 05:57] LABS: ALBUMIN 3.8 g/dL (3.2-5.0); BILIRUBIN, TOTAL 0.5 mg/dL (0.02-1.3); CHOLESTEROL HDL RATIO 2.5 (<4.4 (CALC)); CREATININE 0.7 mg/dL (0.5-1.0); MAGNESIUM 2.4 mg/dL (1.6-2.3); POTASSIUM 4.2 mmol/l (3.5-5.1); TOTAL PROTEIN 6.6 g/dL (6.3-8.2)
[2024-10-09 06:45] VITALS: BP 140/83
--- NOTE | 2024-10-09 07:20 | NUR ---
PT SITTING UP IN THE BED WATCHING TV, PT IS A&O X3, PUPILS PERRL, RESP. EVEN AND UNLABORED, LUNG SOUNDS ARE CLEAR, ABD DISTENDED AND SOFT WITH ACTIVE BOWEL SOUNDS, NORMAL S1 S2 HEART SOUNDS, TELE MONITOR IN PLACE, STRONG RADIAL AND PEDAL PULSES, 22G RFA IV SL, 20G LFA IV SL, SAFETY MEASURES REINFORCED, CALL LOPEZ WITHIN REACH
--- NOTE | 2024-10-09 10:07 | NUR ---
Discharge instructions given. Patient verbalizes understanding of same. Discharged in stable condition via Wheelchair to Home with spouse. All belongings sent with pt.
--- NOTE | 2024-10-11 14:01 | NUR ---
dISCHARGE FOLLOW UP CALL COMPLETED 10/11/24. pT STATES SHE IS DOING WELL SINCE DISCHARGE. nO NEW MEDICATION WAS PRESCRIBED AT DISCHARGE. pATIENT HAS AFOLLOW UP APPOINTMENT WITH HER pcp ON 10/25/24. nO NEEDS OR CONCERNS VERALIZED AT THIS TIME.
== END 2024-10-09 10:07 | disposition home or self-care (01) ==
LOC: ED 05:20 → ED-I 10:03 → ED 10:16 → MS2 10:17
PROVIDERS: Family Medicine; Nurse Practitioner Family; ADMIT Internal Medicine; ATTEND Internal Medicine
DX: R07.89 Other chest pain (principal); K21.9 Gastro-esophageal reflux disease without esophagitis; M47.816 Spondylosis without myelopathy or radiculopathy, lumbar region; F41.9 Anxiety disorder, unspecified; F32.A Depression, unspecified; R42 Dizziness and giddiness; G50.0 Trigeminal neuralgia; Z87.11 Personal history of peptic ulcer disease; Z98.84 Bariatric surgery status; Z90.49 Acquired absence of other specified parts of digestive tract
CPT/HCPCS: G0378; J1171; J1650; J2060; J2405; Q9967